=== PATIENT | female | born 1975 | race Caucasian/White ===

== ENCOUNTER 2019-06-18 16:43 | Inpatient (IN) ==
[2019-06-18] MEDS ORDERED: CEFEPIME 2,000 MG in SODIUM CHLORIDE 0.9% 100 ML IV STA ×2 (19:19→19:28)
[2019-06-18] MEDS ORDERED: VANCOMYCIN INJ 1,000 MG in SODIUM CHLORIDE 0.9% 250 ML IV STA (19:19)
[2019-06-18] MEDS ORDERED: VANCOMYCIN INJ 2,000 MG in SODIUM CHLORIDE 0.9% 500 ML IV STA (19:29)
[2019-06-18 19:42] LABS: Basophils % 0.3 % (0.0-0.8); Eosinophils # 0.2 10*3/uL (0.0-0.87); Eosinophils % 1.5 % (0.00-10.9); Hematocrit 34.3 VOL% (35.7-47.0); Hemoglobin 9.7 GM/DL (12.0-16.0); Immature Granulocytes % 0.3 %; Immature Granulocytes Absolute 0.03 #; Lymphocytes # 1.5 10*3/uL (1.4-4.0); Lymphocytes % 13.4 % (21.3-54.2); Mean Corpuscular HGB Conc 28.3 GM/DL (32-36); Mean Platelet Volume 9.3 FL (9.6-12.0); Monocytes % 5.1 % (1.7-12.7); Neutrophils % 79.4 % (38.7-73.9); Platelet Count 398 T/CUMM (130-400); Red Blood Count 4.97 MC/CUMM (3.8-5.5)
[2019-06-18 19:46] LABS: Albumin 3.3 G/DL (3.4-5.0); Bilirubin,Total 0.4 MG/DL (0.2-1.0); Calcium 8.7 MG/DL (8.5-10.1); Osmolality,Calculated 269.1 MOS/KG (273-304)
[2019-06-18 20:13] LABS: Ovalocytes 1+; Platelet Estimate Normal
[2019-06-18 20:14] LABS: Anisocytosis 2+; Hypochromasia 1+; Microcytosis 4+; Poikilocytosis 1+; Polychromasia 1+
[2019-06-18 20:15] LABS: Stomatocytes Few
[2019-06-18] MEDS ORDERED: FUROSEMIDE 40 MG/4 ML VIAL IV STA (20:45)
[2019-06-18] MEDS ORDERED: ONDANSETRON 4 MG/2 ML VIAL IV PRN (22:41)
[2019-06-19] MEDS: traMADol 50 MG TABLET PO PRN ×2 (01:26→23:15)
[2019-06-19] MEDS: ENOXAPARIN 40 MG/0.4 ML SYRINGE SUBCUT SCH ×3 (01:26→20:30)
[2019-06-19] MEDS ORDERED: VANCOMYCIN INJ 2,000 MG in SODIUM CHLORIDE 0.9% 500 ML IV SCH (05:00)
[2019-06-19 05:35] LABS: Folate 6.3 NG/ML (5.4-24.0); Vitamin B12 247 PG/ML (211-911)
[2019-06-19 05:39] LABS: Basophils # 0.1 10*3/uL (0.0-0.2); Basophils % 0.5 % (0.0-0.8); Eosinophils # 0.2 10*3/uL (0.0-0.87); Eosinophils % 2.1 % (0.00-10.9); Hematocrit 31.2 VOL% (35.7-47.0); Immature Granulocytes % 0.4 %; Immature Granulocytes Absolute 0.04 #; Lymphocytes # 2.3 10*3/uL (1.4-4.0); Lymphocytes % 20.8 % (21.3-54.2); Mean Corpuscular HGB Conc 28.8 GM/DL (32-36); Mean Corpuscular Volume 68.9 FL (87-102); Mean Platelet Volume 9.5 FL (9.6-12.0); Monocytes % 7.3 % (1.7-12.7); Neutrophils % 68.9 % (38.7-73.9); Platelet Count 395 T/CUMM (130-400); Red Blood Count 4.53 MC/CUMM (3.8-5.5)
[2019-06-19 05:47] LABS: % Iron Saturation 6.1 % (18-50); Calcium 8.7 MG/DL (8.5-10.1); Ferritin 11.4 ng/ml (8-252); Osmolality,Calculated 272.7 MOS/KG (273-304); Thyroid Stimulating Hormone 5.72 uIU/ml (0.358-3.74)
[2019-06-19 06:00] LABS: Hypochromasia 1+; Ovalocytes Slight; Platelet Estimate Adequate
[2019-06-19 06:01] LABS: Microcytosis Slight
[2019-06-19 06:22] LABS: Sedimentation Rate-Westergren 35 MM/HR (0-20)
[2019-06-19] MEDS: LISINOPRIL 10 MG TABLET PO SCH (09:05)
[2019-06-19 10:39] LABS: Free T4 (Free Thyroxine) 1.1 NG/DL (0.76-1.46)
[2019-06-19 11:13] LABS: Hemoglobin A1 (Alkaline) 97.6 % (96.5-98.5); Hemoglobin A2 (Alkaline) 2.4 % (1.5-3.5)
[2019-06-19] MEDS: VANCOMYCIN INJ 2,000 MG in SODIUM CHLORIDE 0.9% 500 ML IV SCH (17:28)
[2019-06-20 05:00] LABS: Basophils % 0.4 % (0.0-0.8); Eosinophils # 0.3 10*3/uL (0.0-0.87); Eosinophils % 3.3 % (0.00-10.9); Hematocrit 30.1 VOL% (35.7-47.0); Hemoglobin 8.6 GM/DL (12.0-16.0); Immature Granulocytes % 0.2 %; Immature Granulocytes Absolute 0.02 #; Mean Corpuscular HGB Conc 28.6 GM/DL (32-36); Mean Corpuscular Volume 69.7 FL (87-102); Mean Platelet Volume 9.4 FL (9.6-12.0); Monocytes % 7.6 % (1.7-12.7); Neutrophils % 64.5 % (38.7-73.9); Platelet Count 352 T/CUMM (130-400); Red Blood Count 4.32 MC/CUMM (3.8-5.5); Red Cell Distribution Width 18.7 % (9.3-17.3); White Blood Count 8.1 T/CUMM (4-12)
[2019-06-20] MEDS: VANCOMYCIN INJ 2,000 MG in SODIUM CHLORIDE 0.9% 500 ML IV SCH ×2 (05:10→17:25)
[2019-06-20 05:12] LABS: Calcium 8.1 MG/DL (8.5-10.1); Osmolality,Calculated 280.1 MOS/KG (273-304)
[2019-06-20 05:24] LABS: Hypochromasia 1+; Microcytosis Slight; Ovalocytes Slight; Platelet Estimate Adequate
[2019-06-20] MEDS: ENOXAPARIN 40 MG/0.4 ML SYRINGE SUBCUT SCH ×2 (09:08→20:25)
[2019-06-20] MEDS: LISINOPRIL 10 MG TABLET PO SCH (09:10)
[2019-06-21] MEDS: VANCOMYCIN INJ 2,000 MG in SODIUM CHLORIDE 0.9% 500 ML IV SCH (05:47)
[2019-06-21] MEDS ORDERED: LEVOTHYROXINE 125 MCG TABLET PO SCH (06:30)
[2019-06-21] MEDS: LISINOPRIL 10 MG TABLET PO SCH (08:50)
[2019-06-21] MEDS: ENOXAPARIN 40 MG/0.4 ML SYRINGE SUBCUT SCH (08:51)
[2019-06-21 11:58] VITALS: BP 153/83
== END 2019-06-21 17:00 | disposition home health service (06) | DRG 603 ==
LOC: N.ED 16:43 → N.EDINP 20:40 → N.5E 21:54
PROVIDERS: ADMIT Internal Medicine; ATTEND Internal Medicine